=== PATIENT | female | born 1975 | race Two or more races ===

== ENCOUNTER 2024-11-05 05:23 | Inpatient (IN) | payer OTHER ==
[~2024-11-05] VITALS: Ht 167.6 cm; Wt 90.7 kg
--- NOTE | 2024-11-05 05:38 | ECG ---
[facility] Test Date: 2024-11-05 Test Time: 05:26:55 Pat Name: MIGUEL ANGEL DIAS Department: ED Room: 0240T Gender: F Director Of Religious Life: gisel : 1975 Requested By: MANUEL BYNUM Order Number: [id number] Reading MD: Pola Petersen Measurements Intervals Parrish Rate: 82 P: 58 DC: 134 QRS: -52 QRSD: 94 T: 51 QT: 374 QTc: 437 Interpretive Statements Sinus rhythm Left axis deviation Baseline wander in lead(s) II,III,aVR,aVL,aVF,V1,V3,V4,V5 Electronically Signed On 11-06-2024 17:44:50 PDT by Pola Petersen Please click the below link to view image of tracing.
--- NOTE | 2024-11-05 05:49 | ED.PDOC ---
History of Present Illness HPI Comments 48-year-old female who came to ER via EMS for shortness of breath. Has no medical problems. Has been experiencing intermittent episodes of left-sided chest pains, sharp, pinching, for the past 2 weeks. Two days ago patient started having congestion, cough, chest pains and shortness a breath. Also complaining of pain on her legs. No fever noted. Persistence of symptoms prompted patient to go to [facility]. Diagnostics were done and was found to have bilateral pulmonary emboli. Patient transferred here for further evaluation and management. 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 Family History Family History: Reviewed,noncontributory to illness Social History Smoker: Non-Smoker Alcohol: Denies ETOH Use Drugs: Denies Drug Use Lives In: Home Constitutional: reports: fatigue, weakness; denies: chills, diaphoresis, fever, malaise, sweats, others EENTM: reports: nose congestion; denies: blurred vision, double vision, ear bleeding, ear discharge, ear drainage, ear pain, ear ringing, eye pain, eye redness, hearing loss, mouth pain, mouth swelling, nasal discharge, nose blee ding, nose pain, photophobia, tearing, throat pain, throat swelling, voice changes, others Respiratory: reports: cough, SOB at rest, shortness of breath, SOB with excertion; denies: hemoptysis, orthopnea, stridor, wheezing, others Cardiovascular: reports: chest pain; denies: dizzy spells, diaphoresis, Dyspnea on exertion, edema, irregular heart beat, left arm pain, lightheadedness, palpitations, PND, syncope, others Gastrointestinal: denies: abdomen distended, abdominal pain, blood streaked bowels, constipated, diarrhea, dysphagia, difficulty swallowing, hematemesis, melena, nausea, poor appetite, poor fluid intake, rectal bleeding, rectal pain, vomiting, others Genitourinary: denies: abnormal vagina bleeding, burning, dyspareunia, dysuria, flank pain, frequency, hematuria, incontinence, pain, , vagina discharge , urgency, others Neurological: denies: dizziness, fainting, headache, left sided numbness, left sided weakness, numbness, paresthesia, pre-existing deficit, right sided numbness, right sided weakness, seizure, speech problems, tingling, tremors, weakness, others Musculoskeletal: denies: back pain, gout, joint pain, joint swelling, muscle pain, muscle stiffness, neck pain, others Integumetry: denies: bruises, change in color, change in hair/nails, dryness, laceration, lesions, lumps, rash, wounds, others Allergic/Immunocompromised: denies: Difficulty Healing, Frequent Infections, Hives, Itching, others Hematologic/Lymphatic: denies: anemia, blood clots, easy bleeding, easy bruising, swollen glands, others Endocrine: denies: excessive hunger, excessive sweating, excessive thirst, excessive urination, flushing, intolerance to cold, intolerance to heat, unexplained weight gain, unexplained weight loss, others Psychiatric: denies: anxiety, bipolar disorder, depression, hopeless, panic di sorder, schizophrenia, sleepless, suicidal, others Physical Exam General Appearance: No Apparent Distress, Normal HEENT: Normal ENT Inspection, Pharynx Normal, TMs Normal Neck: Full Range of Motion, Non-Tender, Normal, Normal Inspection Respiratory: Chest Non-Tender, Lungs Clear, No Accessory Muscle Use, No Respiratory Distress, Normal Breath Sounds Cardiovascular: No Edema, No JVD, No Murmur, No Gallop, Normal Peripheral Pulses, Regular Rate/Rhythm Breast Exam: Deferred Gastrointestinal: No Organomegaly, Non Tender, No Pulsatile Mass, Normal Bowel Sounds, Soft Genitalia: Deferred Pelvic: Deferred Rectal: Deferred Extremities: No calf tenderness, Normal capillary refill, Normal inspection, Normal range of motion, Non-tender, No pedal edema Musculoskeletal : Apperance: Normal Neurologic: Alert, oil spot washer II-XII nml as Tested, No Motor Deficits, Normal Affect, Normal Mood, No Sensory Deficits Cerebellar Function: Normal Reflexes: Normal Skin: Dry, Normal Color, Warm Lymphatic: No Adenopathy Was a procedure done? Was a procedure done?: No Differential Dx Considerations may include: Electrolyte imbalance, pneumonia, coronary artery disease, AL, pulmonary emboli, congestive heart failure X-Ray, Labs, Meds, VS Vital Signs Date Time Temp Pulse Resp B/P (MAP) Pulse Ox O2 Delivery O2 Flow Rate FiO2 11/05/24 05:26 82 11/05/24 05:25 98.4 99 16 144/82 (102) 98 98.4 Time of 1ST Reevaluation: 05:41 Reevaluation 1ST: Unchanged Patient Education/Counseling: Diagnosis, Treatment Family Education/Counseling: No Family Present Departure 1 Departure Time of Disposition: 05:51 (Patient was a transfer from [facility] for massive PE. Patient received a heparin bolus at outside facility we will admit patient for further workup and inari consultation) Impression: Primary Impression: Pulmonary embolism Qualified Codes: I26.02 - Saddle embolus of pulmonary artery with acute cor pulmonale Additional Impressions: Shortness of breath Acute chest pain Disposition: ADMITTED INPATIENT Admit to: [facility] Condition: Critical Critical Care Note Critical Care Time?: Yes (35 min-critical care time only) Critical care comment: Pulmonary emboli Authorized and Performed by: Manuel Rodriguez MD Total critical care time: Approximately 38 minutes Due to a high probability of clinically significant, life threatening deterioration, the patient required my highest level of preparedness to intervene emergently and I personally spent this critical care time directly and personally managing the patient. This critical care time included obtaining a history; examining the patient; pulse oximetry; ordering and review of studies; arranging urgent treatment with development of a management plan; evaluation of patient's response to treatment; frequent reassessment; and, discussions with other providers. This critical care time was performed to assess and manage the high probability of imminent, life-threatening deterioration that could result in multi-organ failure. It was exclusive of separately billable procedures and treating other patients and teaching time. Please see my other sections and the rest of the note for further information on patient assessment and treatment. Stability Stability form required: No Heart Score Heart Score: Heart Score Response (Comments) Value History Moderate Suspicious 1 EKG Normal 0 Age 45-64 1 Risk Factors No known risk factors 0 Troponin Normal limit 0 Total 2 I personally scribed for MANUEL RODRIGUEZ MD ([email or web address]) on 11/05/24 at 05:49. Electronically submitted by Valdez Mehta ([facility]). MANUEL RODRIGUEZ MD Nov 05, 2024 05:49
[2024-11-05 06:16] LABS: Basophils # (auto) 0 10 ^3/uL (0-0.2); Basophils % (auto) 0.8 % (0.0-2.0); Eosinophils # (auto) 0.3 10 ^3/uL (0-0.8); Eosinophils % (auto) 3.9 % (0.0-7.0); Hematocrit 41.2 % (36.0-46.0); Hemoglobin 14.1 g/dL (12.2-16.2); Lymphocytes # (auto) 1.3 10 ^3/uL (0.4-5.4); Lymphocytes % (auto) 20.8 % (10.0-50.0); Mean Corpuscular Hemoglobin 30.9 pg (28.0-32.0); Mean Corpuscular Hgb Conc. 34.1 g/dL (32.0-36.0); Mean Corpuscular Volume 90.6 fL (80.0-100.0); Monocytes # (auto) 0.8 10 ^3/uL (0-1.3); Monocytes % (auto) 12.1 % (0.0-12.0); Neutrophils % (auto) 62.4 % (37.0-80.0); Nucleated Red Blood Cells % 0.2 %; Platelet Count (auto) 307 10^3/uL (140-450); Red Blood Cells 4.55 10^6/uL (4.0-5.20); Red Cell Distribution Width 13.5 % (11.8-14.3); White Blood Cell 6.4 10^3/uL (4.4-10.8)
[2024-11-05 06:27] LABS: Sodium 139 mmol/L (136-145)
[2024-11-05 06:28] LABS: Anion Gap 8 (5-15); Calcium 8.7 mg/dL (8.7-10.4); Carbon Dioxide 23 mmol/L (20-31)
[2024-11-05 06:33] LABS: BUN/Creatinine Ratio 18.5 (10.0-20.0); Blood Urea Nitrogen 10 mg/dL (9-23)
[2024-11-05 06:34] LABS: Chloride 108 mmol/L (98-107); Glucose 109 mg/dL (74-106); Potassium 3.2 mmol/L (3.5-5.1)
[2024-11-05 06:44] LABS: INR 1.01 (0.9-1.15); Partial Thromboplastin Time 40.2 SEC (24.5-34.5); Prothrombin Time 10.7 sec (9.3-11.8)
[2024-11-05] MEDS ORDERED: NITROGLYCERIN 0.4 MG SL TAB SL PRN (06:45)
[2024-11-05] MEDS ORDERED: ONDANSETRON HCL 4 MG/2 ML VIAL IV PRN (06:45)
[2024-11-05] MEDS ORDERED: HEPARIN SODIUM (PORCINE) 5000 UNITS/ML 1ML VIAL IV ONE (06:45)
[2024-11-05] MEDS ORDERED: MORPHINE SULFATE INJ 2 MG/ml SYRG IV PRN (06:45)
[2024-11-05] MEDS ORDERED: MORPHINE SULFATE 4 MG/ML SYR/VIAL IV PRN (06:45)
[2024-11-05] MEDS: POTASSIUM CHL 20 Meq TABLET PO ONE (06:45)
--- NOTE | 2024-11-05 07:15 | DVHHP2 ---
History of Present Illness Reason for Visit: Chest Pain History of Present Illness Shoshana Grangre is a 48-year-old female with past medical history of hypertension, fibromyalgia, cholecystectomy, partial hysterectomy, and tubal ligation who presents to the ED from [facility] for shortness of breath and left chest pain x2 weeks. Patient reports that she was sick with a cough and cold with productive clear phlegm. Patient reports that the chest pain is pinching and sharp currently 3/10 and intermittent pain. She states that coughing and the cold air makes it worse. She also reports that she had a headache with the cough. Patient reports that she does not take any medications at home. Per reports [facility] CT chest shows massive left and moderate right PE associated with right ventricular strain. Inferior lingula and left basilar wedge shaped pulmonary opacities concerning for infarction. CT abdomen pelvis from [place] shows bilateral subcentimeter nonobstructive calcified renal calculi, the largest is seen in the left lower renal pole measuring 6 mm. Patient does not endorse any leg pain however she states that her thigh left side does have some pinching sensation when she coughs. Patient denies fever, chills, lightheadedness, weakness, dizziness, abdominal pain, nausea, vomiting, and diarrhea. Patient was given a bolus of 5000 units of heparin at [facility]. Cardiovascular: HTN Past Medical History Fibromyalgia Past Surgical History: Cholecystectomy, Hysterectomy, Tubal Ligation Family History: Cancer, Other (Dad's entire family from cancer or with cancer) Smoke: No ALCOHOL: occassional Drugs: None Lives: with Family Domestic Violence: Neg Review of Systems Respiratory: Cough, Shortness of breath, Sputum Cardiovascular: Chest Pain Musculoskeletal: leg pain Allergies: Coded Allergies: NO KNOWN ALLERGIES (Unverified , 11/05/24) Exam Vital Signs Vital Signs Date Time Temp Pulse Resp B/P (MAP) Pulse Ox O2 Delivery O2 Flow Rate FiO2 11/05/24 05:45 98.1 73 18 135/82 (99) 98 98.1 General Appearance: Alert, Oriented X3, Cooperative, No acute distress HEENT: Atraumatic, PERRLA, EOMI, Mucous membr. moist/pink Respiratory: Normal air movement Cardiovascular: Regular rate, Normal S1, Normal S2 Abdominal: Normal bowel sounds, Soft, No tenderness, No hepatospenomegaly, No masses Extremities: No cyanosis Skin: No significant lesion Neuro: Normal speech, Strength at 5/5 X4 ext, Normal tone, Sensation intact Psych/Mental Status: Mental status NL, Mood NL Labs/Xrays Labs Test 11/05/24 06:00 Range/Units White Blood Count 6.4 4.4-10.8 10^3/uL Red Blood Count 4.55 4.0-5.20 10^6/uL Hemoglobin 14.1 12.2-16.2 g/dL Hematocrit 41.2 36.0-46.0 % Mean Corpuscular Volume 90.6 80.0-100.0 fL Mean Corpuscular Hemoglobin 30.9 28.0-32.0 pg Mean Corpuscular Hemoglobin Concent 34.1 32.0-36.0 g/dL Red Cell Distribution Width 13.5 11.8-14.3 % Platelet Count 307 140-450 10^3/uL Mean Platelet Volume 6.6 L 6.9-10.8 fL Neutrophils (%) (Auto) 62.4 37.0-80.0 % Lymphocytes (%) (Auto) 20.8 10.0-50.0 % Monocytes (%) (Auto) 12.1 H 0.0-12.0 % Eosinophils (%) (Auto) 3.9 0.0-7.0 % Basophils (%) (Auto) 0.8 0.0-2.0 % Neutrophils # (Auto) 4.0 1.6-8.6 10 ^3/uL Lymphocytes # (Auto) 1.3 0.4-5.4 10 ^3/uL Monocytes # (Auto) 0.8 0-1.3 10 ^3/uL Eosinophils # (Auto) 0.3 0-0.8 10 ^3/uL Basophils # (Auto) 0 0-0.2 10 ^3/uL Nucleated Red Blood Cells 0.2 % Prothrombin Time 10.7 9.3-11.8 sec Prothrombin Time INR 1.01 0.9-1.15 Activated Partial Thromboplast Time 40.2 H 24.5-34.5 SEC D-Dimer, Quantitative 0.48 0.0-0.49 mg/L FEU Sodium Level 139 136-145 mmol/L Potassium Level 3.2 L 3.5-5.1 mmol/L Chloride Level 108 H 98-107 mmol/L Carbon Dioxide Level 23 20-31 mmol/L Anion Gap 8 5-15 Blood Urea Nitrogen 10 9-23 mg/dL Creatinine 0.54 L 0.550-1.02 mg/dL Glomerular Filtration Rate Calc 113 >90 mL/min BUN/Creatinine Ratio 18.5 10.0-20.0 Serum Glucose 109 H 74-106 mg/dL Lactic Acid Level 0.9 0.4-2.0 mmol/L Calcium Level 8.7 8.7-10.4 mg/dL Troponin I High Sensitivity < 3 L </=34 ng/L B-Type Natriuretic Peptide 12.56 0-100 pg/mL Assessment/Plan Assessment/Plan Assessment Hypokalemia Dyspnea Chest pain Pulmonary emboli ETOH use Obesity History of hypertension History of fibromyalgia History of cholecystectomy History of hysterectomy History of tubal ligation Plan Admit to [facility] Heparin drip Replete lytes NPO for now probable thrombectomy Ultrasound bilateral lower extremity venous Lactic EKG Radiology consulted by ED Troponin negative x1 BNP D-dimer PT PTT Aspirin Statin Lipid panel UDS A1c TSH Echo ordered Cardiac consult No home meds to reconcile per patient does not take anything Plan of care with patient, patient's spouse, patient's son-in-law and nurse Counseled patient on cessation of EtOH use Counseled patient on lifestyle modifications, diet, and exercise See reports from [facility] for imaging studies that were done Plan discussed with: Patient, Spouse My Orders Orders - JD PEMBERTON Procedure Category Date Status Time Potassium Er Tablet PHA 11/05/24 Verified (Klor-Con Tablet) 06:45 Admit ADMIT 11/05/24 Verified 06:43 Code Status CODE 11/05/24 Verified 06:43 Vital Signs BI 11/05/24 Verified 06:43 Dynamicist BI 11/05/24 Verified 06:43 Aspirin Tablet PHA 11/05/24 Verified 10:00 Date of Service: Nov 05, 2024 Billing Provider: JD PEMBERTON Common Visit Codes: [id number] INP/OBS CARE (HIGH) JD PEMBERTON Nov 05, 2024 07:15
[2024-11-05] MEDS: cefTRIAXone 1GM/50ML D5W 50 ML IV ONE (07:30)
[2024-11-05 08:15] VITALS: PULSE 65; RESP 12; O2SAT 95
--- NOTE | 2024-11-05 08:25 | DVH ---
Bilateral lower extremity venous duplex Clinical History: bilateral PE Comparison: None Technique: Duplex Doppler evaluation of the deep venous systems of both lower extremities from the common femora l veins to the popliteal veins including color Doppler and spectral/pulsed waveform analysis was perf ormed. Findings: RIGHT SIDE: The common femoral vein demonstrates appropriate compressibility and waveform variability. There is compressibility/patency of the great saphenous vein at the proximal thigh. The femoral vein demonstrates appropriate compressibility and waveform variability. The deep femoral vein demonstrates appropriate compressibility and waveform variability. The popliteal vein demonstrates appropriate compressibility and waveform variability. There is normal compressibility at the tibioperoneal trunk. LEFT SIDE: The common femoral vein demonstrates appropriate compressibility and waveform variability. There is compressibility/patency of the great saphenous vein at the proximal thigh. The femoral vein demonstrates appropriate compressibility and waveform variability. The deep femoral vein demonstrates appropriate compressibility and waveform variability. The popliteal vein demonstrates appropriate compressibility and waveform variability. There is normal compressibility at the tibioperoneal trunk. Impression: No right or left femoropopliteal venous thrombosis.
[2024-11-05] MEDS: HEPARIN DRIP/D5W 100UNITS/ML 250 ML IV SCH (08:29)
[2024-11-05 08:36] LABS: Triglycerides 92 mg/dL (< 150)
[2024-11-05 08:37] LABS: LDL Cholesterol 73 mg/dL (< 100)
[2024-11-05 08:38] LABS: Cholesterol 128 mg/dL (< 200); HDL Cholesterol 49 mg/dL (40-59)
[2024-11-05] MEDS: IOHEXOL 350 MG/ML 100ML IJ ONE (09:55)
[2024-11-05] MEDS: ASPirin 81 mg TAB PO SCH (10:00)
[2024-11-05] MEDS: SODIUM CHLORIDE 0.9% 1,000 ML IV SCH (10:30)
--- NOTE | 2024-11-05 10:46 | DVH ---
CTA Chest with intravenous contrast INDICATION: R/O PE COMPARISON: None TECHNIQUE: Multidetector spiral CTA of the chest was performed of the chest with intravenous contrast . PULMONARY ANGIOGRAPHY PROTOCOL was utilized using a bolus-tracking technique centered on the main p ulmonary artery. Axial, coronal and sagittal multiplanar and MIP reformats were performed. CONTRAST: Type of contrast: Omni 350 Contrast injected: 60 ml Radiation dose : Chest: CTDI volume is 23.71 mGy. Dose-length product is 945.8 mGy*cm The dose indicators for CT are the volume computed Tomography (CT) dose Index (CTDIvol) and the dose Length product (DLP), and are measured in units of mGy and mGy-cm, respectively. These indicators are not patient dose, but values generated from the CT scanner acquisition factors. The report includes radiation exposure data for exposures received during this examination. Findings: Pulmonary artery: No pulmonary embolism Lower neck: Normal thyroid. Lungs: No focal consolidation, pleural effusion or pneumothorax. Heart/Vascular Structures: Normal heart size. No pericardial effusion. Lymph Nodes: No adenopathy Pleura: No pleural effusion or significant pneumothorax. Musculoskeletal: No acute osseous abnormality. Soft tissues: Normal. Upper abdomen: Limited portions of the upper abdomen are unremarkable. IMPRESSION: 1. No pulmonary embolism. 2. No acute thoracic finding. HS:Y
[2024-11-05] MEDS: ACETYLCYSTEINE ORAL for CIN 20%(200MG/ML) 4ML PO ONE (11:39)
--- NOTE | 2024-11-05 11:41 | DVH ---
EXAM: XY CHEST XRAY 1 VIEW Indication: cp Technique: Single frontal view of the chest was obtained Comparison: None FINDINGS: Lines and Tubes: None Lungs: No focal consolidation. Pleura: No effusion. No pneumothorax. Cardiomediastinal contours: Unremarkable Bones: No acute osseous abnormality. IMPRESSION: No acute cardiopulmonary disease.
--- NOTE | 2024-11-05 12:52 | DVHPN2 ---
Reviewed: Care Plan, H&P, Labs, Medications, Previous Orders, Radiology Changes from previous H/P or p: No Changes Cardiovascular: Chest Pain Respiratory: Cough, Shortness of breath, Sputum Musculoskeletal: leg pain Objective Vitals Vital Signs Date Time Temp Pulse Resp B/P (MAP) Pulse Ox O2 Delivery O2 Flow Rate FiO2 11/05/24 08:15 65 12 95 Room Air* 0 21 11/05/24 08:00 98.5 130/78 (95) 98.5 Medications Current Medications Medications Dose Ordered Sig/Alex Route Start Time Stop Time Status Last Admin Dose Admin Aspirin 81 mg DAILY PO 11/05/24 10:00 Atorvastatin Calcium 40 mg HS PO 11/05/24 22:00 Morphine Sulfate 2 mg Q30MP PRN IV 11/05/24 06:45 Acetaminophen 650 mg Q6HP PRN PO 11/05/24 06:45 Ondansetron HCl 4 mg Q4HP PRN IV 11/05/24 06:45 Nitroglycerin 0.4 mg Q5MINP PRN SL 11/05/24 06:45 Ceftriaxone Sodium 50 ml @ 100 mls/hr DAILY@09 IV 11/06/24 09:00 Sodium Chloride 1,000 ml @ 75 mls/hr [id number] IV 11/05/24 08:30 11/05/24 10:30 75 MLS/HR Acetylcysteine 1,200 mg BID PO 11/05/24 22:00 11/07/24 21:59 Laboratory Results Laboratory Tests 11/05/24 06:00 Chemistry Test 11/05/24 06:00 Calcium Level 8.7 mg/dL (8.7-10.4) Coagulation Test 11/05/24 06:00 Prothrombin Time 10.7 sec (9.3-11.8) Prothrombin Time INR 1.01 (0.9-1.15) Activated Partial Thromboplast Time 40.2 SEC (24.5-34.5) H D-Dimer, Quantitative 0.48 mg/L FEU (0.0-0.49) Lipid panel Test 11/05/24 06:00 Cholesterol Level 128 mg/dL (< 200) HDL Cholesterol 49 mg/dL (40-59) Triglycerides Level 92 mg/dL (< 150) Cardiac Markers Test 11/05/24 06:00 B-Type Natriuretic Peptide 12.56 pg/mL (0-100) HgA1c, TSH Test 11/05/24 06:00 Hemoglobin A1c 5.4 % A1C (<5.7) Thyroid Stimulating Hormone (TSH) 0.39 uIU/mL (0.55-4.78) L Labs and/or images reviewed: Labs reviewed by me, Image(s) reviewed by me Assessment/Plan Assessment/Plan Acute chest pain troponin negative x3: Cardiology consult for Dr. Petersen D-dimer normal DVT ruled out PE ruled out Possible community-acquired pneumonia: Rocephin Hypertension Fibromyalgia Moderate obesity Chronic alcohol abuse : will check blood alcohol level and urine drug screen Britney test pending Rapid flu test pending Plan discussed with: Patient My Orders Orders - VIOLETA DUNN MD Procedure Category Date Status Time Rapid Influenza A&B LAB 11/05/24 Logged 12:47 Communication Order ORDERS 11/05/24 Transmitted 12:47 * Cardiology Consult CONS 11/05/24 Transmitted 12:49 Date of Service: Nov 05, 2024 Billing Provider: VIOLETA DUNN MD Common Visit Codes: [id number] INP/OBS CARE(HIGH) VIOLETA DUNN MD Nov 05, 2024 12:52
--- NOTE | 2024-11-05 13:58 | DVH ---
CT CT AB PEL WO CON-NO ORAL OR IV INDICATION: R/O KIDNEY STONES EXAM DATE: 11/05/2024 01:11 PM COMPARISON: None RADIATION DOSE: CTDIvol: 16.93 mGy, DLP: 954.35 mGy*cm PROCEDURE: Helical CT images were obtained of the abdomen and pelvis without IV contrast Sagittal and coronal reconstructions are provided. ORAL CONTRAST: None. ADDITIONAL IMAGES / REFORMATS: None All C T scans at this medical facility are performed using dose modulation techniques as appropriate to a p erformed exam including the following: Automated exposure control was utilized; adjustment of the MA and/or KV according to patient size; and use of iterative reconstruction technique. FINDINGS: LUNG BASE: 4 mm left lower lobe calcified pulmonary granuloma. LIVER: Normal. GALLBLADDER AND BILIARY TREE: Cholecystectomy clips are seen. No intra- or extrahepatic biliary ducta l dilation. PANCREAS: Normal. SPLEEN: Normal. BOWEL: Mild colonic diverticulosis. Normal appendix. ADRENALS: Normal. KIDNEYS AND URETER: Contrast material seen to opacify the renal collecting systems. BLADDER: Decompressed with contrast material inside. REPRODUCTIVE ORGANS: Absent. LYMPH NODES:No lymphadenopathy. PERITONEUM: No ascites or free air. No other fluid collection. VESSELS: Scattered atherosclerotic calcifications are noted. RETROPERITONEUM: Normal. ABDOMINAL WALL: Normal. BONES: Scattered osseous degenerative changes are noted. IMPRESSION: No acute intraabdominal abnormality. No kidney stones are seen.
[2024-11-05] MEDS: ACETAMINOPHEN 325 MG TAB PO PRN (14:51)
--- NOTE | 2024-11-05 16:08 | DVHINCON2 ---
Date Seen: Nov 05, 2024 Referring Physician MD Beto Reason for Consultation Chest pain History of Present Illness This is a 48-year-old female patient who presents to the emergency room as a transfer from [facility]. Initially, the patient went to [facility] with complaints of chest pain for two weeks as well as shortness of breath. While at [facility], it was noted in their reports that the patient had a pulmonary embolism with right ventricular strain. After the patient was brought to this facility, a repeat CT with contrast was done and shows no pulmonary embolism. Cardiology is being consulted for chest pain. The patient reports that the chest pain began initially two weeks ago. She describes as provoked by coughing, intermittent,"pinching" in nature, and located on the left side of the chest without radiation. Initial twelve lead electrocardiogram reveals normal sinus rhythm without any significant ST segment changes. Serial troponin levels have been negative. The patient denies any previous past medical history and states that she does not take any prescribed medications. She does report recently having flu-like symptoms for few days prior to emergency room arrival including sore throat and cough. Past Medical History Denies all previous medical history Past Surgical History Cholecystectomy Tubal ligation Partial hysterectomy Family History Family history reviewed. Social History Denies the use of tobacco, alcohol or illicit drugs. Allergies: Coded Allergies: NO KNOWN ALLERGIES (Unverified , 11/05/24) Home Meds Denies taking any prescribed medications Current Medications Current Medications Medications (Trade) Dose Ordered Sig/Alex Route PRN Reason Start Time Stop Time Status Last Admin Aspirin 81 mg DAILY PO 11/05/24 10:00 Atorvastatin Calcium (Lipitor) 40 mg HS PO 11/05/24 22:00 Morphine Sulfate 2 mg Q30MP PRN IV FOR CHEST PAIN 11/05/24 06:45 Acetaminophen (Tylenol Tablet) 650 mg Q6HP PRN PO MILD PAIN (1-3 PAIN SCALE) 11/05/24 06:45 11/05/24 14:51 Ondansetron HCl (Zofran) 4 mg Q4HP PRN IV NAUSEA / VOMITING 11/05/24 06:45 Nitroglycerin (Ntrostat Sublingual) 0.4 mg Q5MINP PRN SL FOR CHEST PAIN 11/05/24 06:45 Morphine Sulfate 2 mg Q30M PRN IV FOR CHEST PAIN 11/05/24 06:45 11/05/24 08:03 DC Heparin Sodium/ Dextrose 250 ml @ 17 mls/hr [id number] IV 11/05/24 06:45 11/05/24 11:05 DC 11/05/24 08:29 Ceftriaxone Sodium 50 ml @ 100 mls/hr DAILY@09 IV 11/06/24 09:00 Sodium Chloride 1,000 ml @ 75 mls/hr [id number] IV 11/05/24 08:30 11/05/24 10:30 Acetylcysteine (Mucomyst Po Soln (For [place])) 1,200 mg BID PO 11/05/24 22:00 11/07/24 21:59 Review of Systems Constitutional: No symptom reported Ears, Nose, & Throat: No symptom reported Eyes: No symptom reported Neurological: No symptoms reported Pulmonary/Respiratory: No symptoms reported Cardiovascular: Chest pain Gastrointestinal: No symptom reported Genitourinary: No symptom reported Musculoskeletal: No symptom reported Skin: No symptom reported Psychiatric: No symptom reported Endocrine: No symptom reported Hematologic/Lymphatic: No symptom reported Vital Signs Vital Signs Date Time Temp Pulse Resp B/P (MAP) Pulse Ox O2 Delivery O2 Flow Rate FiO2 11/05/24 12:00 75 15 142/85 (104) 97 11/05/24 08:15 Room Air* 0 21 11/05/24 08:00 98.5 98.5 Physical Exam General Appearance: Cooperative. Well-developed. Well-nourished. No acute distress. Pulmonary/Respiratory: Clear, bilateral breaths sounds. Cardiovascular/Chest: Regular rate and rhythm. Peripheral Pulses: 2+ Radial (R). 2+ Radial (L). 2+ Pedal (R). 2+ Pedal (L) Abdominal Exam: Normal bowel sounds. Ankle Exam: Negative ankle edema Lower extremities: Negative lower extremity edema Neuro/Mental Status: A/OX4, coherent. Thoughts/Psych: Normal thought pattern. Appropriate mood and affect. Good judgment and insight. Appearance: No acute distress. Skin Exam: Normal inspection. Normal color. Warm and dry. Labs/Diagnostic Data Labs Test 11/05/24 08:59 11/05/24 06:00 Range/Units Troponin I High Sensitivity < 3 L </=34 ng/L White Blood Count 6.4 4.4-10.8 10^3/uL Red Blood Count 4.55 4.0-5.20 10^6/uL Hemoglobin 14.1 12.2-16.2 g/dL Hematocrit 41.2 36.0-46.0 % Mean Corpuscular Volume 90.6 80.0-100.0 fL Mean Corpuscular Hemoglobin 30.9 28.0-32.0 pg Mean Corpuscular Hemoglobin Concent 34.1 32.0-36.0 g/dL Red Cell Distribution Width 13.5 11.8-14.3 % Platelet Count 307 140-450 10^3/uL Mean Platelet Volume 6.6 L 6.9-10.8 fL Neutrophils (%) (Auto) 62.4 37.0-80.0 % Lymphocytes (%) (Auto) 20.8 10.0-50.0 % Monocytes (%) (Auto) 12.1 H 0.0-12.0 % Eosinophils (%) (Auto) 3.9 0.0-7.0 % Basophils (%) (Auto) 0.8 0.0-2.0 % Neutrophils # (Auto) 4.0 1.6-8.6 10 ^3/uL Lymphocytes # (Auto) 1.3 0.4-5.4 10 ^3/uL Monocytes # (Auto) 0.8 0-1.3 10 ^3/uL Eosinophils # (Auto) 0.3 0-0.8 10 ^3/uL Basophils # (Auto) 0 0-0.2 10 ^3/uL Nucleated Red Blood Cells 0.2 % Prothrombin Time 10.7 9.3-11.8 sec Prothrombin Time INR 1.01 0.9-1.15 Activated Partial Thromboplast Time 40.2 H 24.5-34.5 SEC D-Dimer, Quantitative 0.48 0.0-0.49 mg/L FEU Sodium Level 139 136-145 mmol/L Potassium Level 3.2 L 3.5-5.1 mmol/L Chloride Level 108 H 98-107 mmol/L Carbon Dioxide Level 23 20-31 mmol/L Anion Gap 8 5-15 Blood Urea Nitrogen 10 9-23 mg/dL Creatinine 0.54 L 0.550-1.02 mg/dL Glomerular Filtration Rate Calc 113 >90 mL/min BUN/Creatinine Ratio 18.5 10.0-20.0 Serum Glucose 109 H 74-106 mg/dL Hemoglobin A1c 5.4 <5.7 % A1C Lactic Acid Level 0.9 0.4-2.0 mmol/L Calcium Level 8.7 8.7-10.4 mg/dL B-Type Natriuretic Peptide 12.56 0-100 pg/mL Triglycerides Level 92 < 150 mg/dL Cholesterol Level 128 < 200 mg/dL LDL Cholesterol 73 < 100 mg/dL HDL Cholesterol 49 40-59 mg/dL Thyroid Stimulating Hormone (TSH) 0.39 L 0.55-4.78 uIU/mL Plasma/Serum Blood Alcohol < 3.0 <10 mg/dL Assessment Chest pain, likely noncardiac Rule out structural heart disease Hypertension Hypokalemia ?Thyroid disease Plan/Recommendation We will continue with the following plan/recommendations (Dr. Petersen): Case discussed with . We will proceed with obtaining a transthoracic echocardiogram to evaluate cardiac function. Given the patient's clinical presentation, negative troponin level, and unremarkable twelve lead electrocardiogram, doubt ACS. In the setting of an unremarkable transthoracic echocardiogram, there is no further inpatient cardiac workup indicated at this time. The patient may proceed with an outpatient stress test if deemed necessary. Thank you for allowing us to care for this patient. Please call with any questions or concerns. Critical care time spent: 44 minutes This medical document was created using an electronic medical record system with voice recognition software and computerized dictation system. Although this document has been carefully reviewed, there might still be some phonetic and typographical errors. Occasional wrong-word or ``sound-alike substitutions may have occurred due to the inherent limitations of voice recognition software. These areas are purely typographical due to imperfections of the software programs and do not reflect any compromise in the patient's medical care. Please read the chart carefully and recognize, using context, where these substitutions have occurred. Plan discussed with: Patient NYHA Physical activity limitations: NA Date of Service: Nov 05, 2024 Billing Provider: EMILE CHIRINOS Cardiology Common Codes: [id number] INP/OBS CARE (High) Cardiology Consultation Codes: [id number] CONSULT <45MIN EMILE CHIRINOS Nov 05, 2024 16:08
[2024-11-05 17:00] VITALS: BP 128/86; PULSE 83; RESP 18; TEMP 98.3; O2SAT 96
[2024-11-05 17:51] VITALS: BP 120/72; PULSE 72; RESP 17; TEMP 97.8; O2SAT 97
[2024-11-05 18:02] LABS: COVID19 ANTIGEN SOFIA FIA NEGATIVE (NEGATIVE); Rapid Influenza A Negative (Negative); Rapid Influenza B Negative (Negative)
[2024-11-05 19:18] LABS: Free T3 3.33 pg/mL (2.3-4.2)
--- NOTE | 2024-11-05 19:18 | DVHSR ---
APPROVED REPORT EXAM: Two-dimensional and M-mode echocardiogram with Doppler and color Doppler. Blood Pressure: 135/82 mmHg INDICATION Chest Pain RISK FACTORS Height: 66, Weight: 209 DIMENSIONS LVDd4.8 (3.8-5.7cm)LA (2D)3.9 (1.9-4.0cm)Aortic Root3.3 (2.0-3.7cm) LVDs3.3 (2.5-4.0cm)LA (MM) (1.9-4.0cm)Aortic Cusp Exc1.7 (1.5-2.0cm) EF (%) 60.0 (55-70%)Rt. Atrium3.9 (1.9-4.0cm)Asc. Aorta cm IVSd1.1 (0.7-1.1cm)RV (D) (1.8-2.4cm) PWd1.0 (0.7-1.1cm) Mitral Valve MitralMitral Stenosis E wave0.69m/sMV Mean GR.mmHg A wave0.59m/sMV Peak GR.mmHg E/A ratio1.22D MVAcm2 DECEL [id number] 1/2 [id number] IVRTmsDop MVA2.82cm2 Aortic Valve Aortic ValveAortic Stenosis V11.09m/Josie Mean GR.4mmHg V21.38m/Josie Peak GR.8mmHg LVOT Diameter1.9 (1.8-2.4cm)Doppler AVA2.24cm2 Pulmonic Valve V21.00m/s Tricuspid Valve TR Velocity2.54m/s [id number] Conclusion Technically good study. Sinus rhythm. Normal chamber sizes. Normal valves. EF of 60% with normal RV function. Mild TR. No evidence for pulmonary hypertension. No pericardial effusion masses or vegetations.
[2024-11-05 20:00] VITALS: PULSE 82; PULSE 84; RESP 18; O2SAT 95
[2024-11-05 21:00] VITALS: BP 135/77; PULSE 82; RESP 18; TEMP 98.6; O2SAT 94
[2024-11-05] MEDS: HYDROcodone-ACET 5/325MG TAB PO PRN (21:04)
[2024-11-05 22:02] LABS: Urine Bacteria FEW /hpf (None Seen); Urine Blood 2+ /uL (Negative); Urine Budding Yeast OCCASIONAL /hpf (None Seen); Urine Clarity Clear (Clear); Urine Color Yellow (Yellow); Urine Hyaline Cast FEW /lpf (0 - 2); Urine Mucus FEW (None Seen); Urine Protein, UAD TRACE (Negative); Urine Specific Gravity 1.028 (1.001-1.035); Urine Squamous Epithelial Cell FEW /hpf (<5); Urine Urobilinogen 2 mg/dL (Negative); Urine WBC 1 /HPF (0-5)
[2024-11-05 22:11] LABS: Amphetamine Screen, Urine Neg (NEGATIVE); Barbiturate Scree,Urine Neg (NEGATIVE); Benzodiazephine Screen, Urine Neg (NEGATIVE); Cannabinoid Screen, Urine Neg (NEGATIVE); Cocaine Screen, Urine Neg (NEGATIVE); Opiate Scree,Urine Neg (NEGATIVE); Phencyclidine Screen, Urine Neg (NEGATIVE)
[2024-11-05] MEDS: ACETYLCYSTEINE ORAL for CIN 20%(200MG/ML) 4ML PO SCH (22:18)
[2024-11-05] MEDS: ATORVASTATIN 20 MG TAB PO SCH (22:18)
[2024-11-06] VITALS (7 sets, daily range): BP systolic 107–137; BP diastolic 65–76; PULSE 63–80; RESP 17–20; TEMP 97.8–98.4; O2SAT 93–98
[2024-11-06 06:51] LABS: Basophils # (auto) 0 10 ^3/uL (0-0.2); Basophils % (auto) 0.9 % (0.0-2.0); Eosinophils # (auto) 0.3 10 ^3/uL (0-0.8); Eosinophils % (auto) 5.7 % (0.0-7.0); Hematocrit 38.1 % (36.0-46.0); Hemoglobin 13.6 g/dL (12.2-16.2); Lymphocytes # (auto) 1.6 10 ^3/uL (0.4-5.4); Lymphocytes % (auto) 36.8 % (10.0-50.0); Mean Corpuscular Hemoglobin 32.2 pg (28.0-32.0); Mean Corpuscular Hgb Conc. 35.6 g/dL (32.0-36.0); Mean Corpuscular Volume 90.4 fL (80.0-100.0); Monocytes # (auto) 0.7 10 ^3/uL (0-1.3); Monocytes % (auto) 15.3 % (0.0-12.0); Neutrophils # (auto) 1.8 10 ^3/uL (1.6-8.6); Neutrophils % (auto) 41.3 % (37.0-80.0); Platelet Count (auto) 271 10^3/uL (140-450); Red Blood Cells 4.22 10^6/uL (4.0-5.20); Red Cell Distribution Width 13.4 % (11.8-14.3); White Blood Cell 4.4 10^3/uL (4.4-10.8)
[2024-11-06 07:00] LABS: Anion Gap 9 (5-15); Carbon Dioxide 24 mmol/L (20-31); Sodium 141 mmol/L (136-145)
[2024-11-06 07:06] LABS: BUN/Creatinine Ratio 11.1 (10.0-20.0)
[2024-11-06 07:08] LABS: Blood Urea Nitrogen 6 mg/dL (9-23); Calcium 8.4 mg/dL (8.7-10.4); Chloride 108 mmol/L (98-107); Glucose 128 mg/dL (74-106); Potassium 3.2 mmol/L (3.5-5.1)
[2024-11-06] MEDS ORDERED: TRAM-626 PO (09:45)
[2024-11-06] MEDS ORDERED: LEVO500T91 PO (09:45)
--- NOTE | 2024-11-06 09:48 | DVHPN2 ---
Reviewed: Care Plan, H&P, Labs, Medications, Previous Orders, Radiology Changes from previous H/P or p: No Changes Cardiovascular: Chest Pain Respiratory: Cough, Shortness of breath, Sputum Musculoskeletal: leg pain Objective Vitals Vital Signs Date Time Temp Pulse Resp B/P (MAP) Pulse Ox O2 Delivery O2 Flow Rate FiO2 11/06/24 05:00 98.4 78 19 122/68 (86) 96 98.4 11/05/24 20:00 Room Air* 0 21 Intake/Output Intake and Output 11/06/24 07:00 Intake Total 2115 ml Balance 2115 ml Intake Oral 940 ml IV Total 1175 ml # Voids 4 # Bowel Movements 1 Medications Current Medications Medications Dose Ordered Sig/Alex Route Start Time Stop Time Status Last Admin Dose Admin Aspirin 81 mg DAILY PO 11/05/24 10:00 Atorvastatin Calcium 40 mg HS PO 11/05/24 22:00 11/05/24 22:18 40 MG Morphine Sulfate 2 mg Q30MP PRN IV 11/05/24 06:45 Acetaminophen 650 mg Q6HP PRN PO 11/05/24 06:45 11/05/24 14:51 650 MG Ondansetron HCl 4 mg Q4HP PRN IV 11/05/24 06:45 Nitroglycerin 0.4 mg Q5MINP PRN SL 11/05/24 06:45 Ceftriaxone Sodium 50 ml @ 100 mls/hr DAILY@09 IV 11/06/24 09:00 Sodium Chloride 1,000 ml @ 75 mls/hr [id number] IV 11/05/24 08:30 11/06/24 04:20 75 MLS/HR Acetylcysteine 1,200 mg BID PO 11/05/24 22:00 11/07/24 21:59 11/05/24 22:18 1,200 MG Acetaminophen/ Hydrocodone Bitart 1 tab Q6HPRN PRN PO 11/05/24 20:30 11/06/24 05:10 1 TAB Laboratory Results Laboratory Tests 11/06/24 05:47 Chemistry Test 11/06/24 05:47 Calcium Level 8.4 mg/dL (8.7-10.4) L Magnesium Level 2.0 mg/dL (1.6-2.6) Urinalysis Test 11/05/24 21:33 Urine Color Yellow (Yellow) Urine Clarity Clear (Clear) Urine pH 6.0 (5.0-9.0) Urine Specific [place] 1.028 (1.001-1.035) Urine Protein Trace (Negative) H Urine Ketones Negative (Negative) Urine Blood 2+ /uL (Negative) H Urine Nitrite Negative (Negative) Urine Bilirubin Negative (Negative) Urine Urobilinogen 2 mg/dL (Negative) H Urine Leukocyte Esterase Negative /uL (Negative) Urine RBC 2 /hpf (0 - 4) Urine Microscopic WBC 1 /HPF (0-5) Urine Squamous Epithelial Cells Few /hpf (<5) Urine Bacteria Few /hpf (None Seen) H Urine Hyaline Casts Few /lpf (0 - 2) Urine Mucus Few (None Seen) Urine Yeast (Budding) Occasional /hpf (None Urine Glucose 2+ mg/dL (Normal) H Labs and/or images reviewed: Labs reviewed by me, Image(s) reviewed by me Assessment/Plan Assessment/Plan Transfered From [facility] Acute chest pain troponin negative x3: Cardiology consult for Dr. Petersen appreciated felt to be noncardiac chest pain, echocardiogram 60 percent ejection fraction, no further cardiac workup per Cardiology D-dimer normal DVT ruled out PE ruled out Possible community-acquired pneumonia: Rocephin Hypertension Fibromyalgia Moderate obesity Urine drug screen neg Britney test negative Rapid flu test negative Patient is asymptomatic without any chest pain stable vital signs being discharged home and she agrees. Plan discussed with: Patient My Orders Orders - VIOLETA DUNN MD Procedure Category Date Status Time Communication Order ORDERS 11/05/24 Transmitted 12:47 * Cardiology Consult CONS 11/05/24 Transmitted 12:49 Ct Ab Pel Wo Con-No CT 11/05/24 Resulted Oral Or Iv 13:11 Date of Service: Nov 06, 2024 Billing Provider: VIOLETA DUNN MD Common Visit Codes: [id number] INP/OBS CARE(HIGH) VIOLETA DUNN MD Nov 06, 2024 09:48
[2024-11-06] MEDS: cefTRIAXone 1GM/50ML D5W 50 ML IV SCH (09:49)
--- NOTE | 2024-11-06 09:52 | DVHDS2 ---
Discharge Summary Date of Admission Nov 05, 2024 at 06:43 Date of Discharge: Nov 06, 2024 Admitting Diagnosis Chest pain Wounds: None Labs/Diagnostic Data: Laboratory Results Test 11/06/24 05:47 11/05/24 21:33 11/05/24 18:35 11/05/24 16:56 White Blood Count 4.4 10^3/uL (4.4-10.8) Red Blood Count 4.22 10^6/uL (4.0-5.20) Hemoglobin 13.6 g/dL (12.2-16.2) Hematocrit 38.1 % (36.0-46.0) Mean Corpuscular Volume 90.4 fL (80.0-100.0) Mean Corpuscular Hemoglobin 32.2 pg (28.0-32.0) Mean Corpuscular Hemoglobin Concent 35.6 g/dL (32.0-36.0) Red Cell Distribution Width 13.4 % (11.8-14.3) Platelet Count 271 10^3/uL (140-450) Mean Platelet Volume 6.8 fL (6.9-10.8) Neutrophils (%) (Auto) 41.3 % (37.0-80.0) Lymphocytes (%) (Auto) 36.8 % (10.0-50.0) Monocytes (%) (Auto) 15.3 % (0.0-12.0) Eosinophils (%) (Auto) 5.7 % (0.0-7.0) Basophils (%) (Auto) 0.9 % (0.0-2.0) Neutrophils # (Auto) 1.8 10 ^3/uL (1.6-8.6) Lymphocytes # (Auto) 1.6 10 ^3/uL (0.4-5.4) Monocytes # (Auto) 0.7 10 ^3/uL (0-1.3) Eosinophils # (Auto) 0.3 10 ^3/uL (0-0.8) Basophils # (Auto) 0 10 ^3/uL (0-0.2) Nucleated Red Blood Cells 0.0 % Sodium Level 141 mmol/L (136-145) Potassium Level 3.2 mmol/L (3.5-5.1) Chloride Level 108 mmol/L (98-107) Carbon Dioxide Level 24 mmol/L (20-31) Anion Gap 9 (5-15) Blood Urea Nitrogen 6 mg/dL (9-23) Creatinine 0.54 mg/dL (0.550-1.02) Glomerular Filtration Rate Calc 113 mL/min (>90) BUN/Creatinine Ratio 11.1 (10.0-20.0) Serum Glucose 128 mg/dL (74-106) Calcium Level 8.4 mg/dL (8.7-10.4) Magnesium Level 2.0 mg/dL (1.6-2.6) Urine Color Yellow (Yellow) Urine Clarity Clear (Clear) Urine pH 6.0 (5.0-9.0) Urine Specific [place] 1.028 (1.001-1.035) Urine Protein Trace (Negative) Urine Ketones Negative (Negative) Urine Blood 2+ /uL (Negative) Urine Nitrite Negative (Negative) Urine Bilirubin Negative (Negative) Urine Urobilinogen 2 mg/dL (Negative) Urine Leukocyte Esterase Negative /uL (Negative) Urine RBC 2 /hpf (0 - 4) Urine Microscopic WBC 1 /HPF (0-5) Urine Squamous Epithelial Cells Few /hpf (<5) Urine Bacteria Few /hpf (None Seen) Urine Hyaline Casts Few /lpf (0 - 2) Urine Mucus Few (None Seen) Urine Yeast (Budding) Occasional /hpf (None Urine Glucose 2+ mg/dL (Normal) Urine Opiates Screen Neg (NEGATIVE) Urine Fentanyl Screen Neg (NEGATIVE) Urine Barbiturates Screen Neg (NEGATIVE) Urine Phencyclidine Screen Neg (NEGATIVE) Urine Amphetamines Screen Neg (NEGATIVE) Urine Benzodiazepines Screen Neg (NEGATIVE) Urine Cocaine Screen Neg (NEGATIVE) Urine Cannabinoids Screen Neg (NEGATIVE) Free Thyroxine (T4) Calculated 1.00 ng/dL (0.89-1.76) Free Triiodothyronine (T3) pg/mL 3.33 pg/mL (2.3-4.2) Influenza Type A Antigen Negative (Negative) Influenza Type B Antigen Negative (Negative) SARS-CoV-2 Antigen (Rapid) Negative (NEGATIVE) Test 11/05/24 08:59 11/05/24 06:00 Troponin I High Sensitivity < 3 ng/L (</=34) Prothrombin Time 10.7 sec (9.3-11.8) Prothrombin Time INR 1.01 (0.9-1.15) Activated Partial Thromboplast Time 40.2 SEC (24.5-34.5) D-Dimer, Quantitative 0.48 mg/L FEU (0.0-0.49) Hemoglobin A1c 5.4 % A1C (<5.7) Lactic Acid Level 0.9 mmol/L (0.4-2.0) B-Type Natriuretic Peptide 12.56 pg/mL (0-100) Triglycerides Level 92 mg/dL (< 150) Cholesterol Level 128 mg/dL (< 200) LDL Cholesterol 73 mg/dL (< 100) HDL Cholesterol 49 mg/dL (40-59) Thyroid Stimulating Hormone (TSH) 0.39 uIU/mL (0.55-4.78) Plasma/Serum Blood Alcohol < 3.0 mg/dL (<10) Other Laboratory Tests 11/06/24 05:47 Brief Hx & Hospital Course: 48-year-old female vent [facility] with chest pain and transmitted to [facility] with a possible diagnosis of pulmonary embolism. CT chest angiogram done in [facility] ruled out pulmonary embolism and also DVT was also ruled out. Troponin negative x3 seen by meter and service line inspector Dr. Wilson echocardiogram 60 percent ejection fraction felt to be noncardiac chest pain. D-dimer is normal history of hypertension fibromyalgia urine drug screen is negative Britney test negative flu test is negative patient feels better without any chest pain stable vital signs cleared for discharge by Cardiology discharged home on Levaquin for possible pneumonia and tramadol. Consults/Reason for consult Cardiology consult Dr. Petersen Operations or Procedures Echocardiogram Condition at Discharge: Fair Final Diagnosis/Problems List Acute chest pain troponin negative x3: Cardiology consult for Dr. Petersen appreciated felt to be noncardiac chest pain, echocardiogram 60 percent ejection fraction, no further cardiac workup per Cardiology D-dimer normal DVT ruled out PE ruled out Possible community-acquired pneumonia: Rocephin Hypertension Fibromyalgia Moderate obesity Urine drug screen neg Britney test negative Rapid flu test negative Discharge Disposition: Home Discharge Instruct/Medications Diet: Regular Activity: Light activity Follow Up/Referral: Follow up with your primary doc Medications: Levaquin Tramadol Transmitted to the pharmacy 35 (Time Taken for discharge summary 35 minutes) Discharge Statement: "Patient was advised to return to the ER or call 911 if any headaches, dizziness, shortness of breath, chest pain, abdominal pain, bleeding, fevers, or worsening of medical condition. Patient was counseled about treatment plan, medications, possible side effects, patientverbalized understanding. All questions were answered to the best of my ability. This discharge took greater then 30 minutes in planning, reviewing documentation, counseling the patient, and discussing with other team members." ASSESSMENT ASSESSMENT Hospital Course Improved Assessment Acute chest pain troponin negative x3: Cardiology consult for Dr. Petersen appreciated felt to be noncardiac chest pain, echocardiogram 60 percent ejection fraction, no further cardiac workup per Cardiology D-dimer normal DVT ruled out PE ruled out Possible community-acquired pneumonia: Rocephin Hypertension Fibromyalgia Moderate obesity Urine drug screen neg Britney test negative Rapid flu test negative Date of Service: Nov 06, 2024 Billing Provider: VIOLETA DUNN MD Common Visit Codes: 11380-QTD/OBS DISCH DAY >30min VIOLETA DUNN MD Nov 06, 2024 09:52
--- NOTE | 2024-11-06 14:36 | DVH ---
Exam: CT CT AB PEL WO CON-NO ORAL OR IV History: ABD Pain Comparison Study: 11/05/2024 TECHNIQUE: Multidetector CT of the abdomen was performed from lung bases to pubic symphysis. Imaging was performed without IV contrast. Axial, coronal and sagittal multiplanar reformats were obtained fr om the axial data set by the technologist. Radiation Dose Information: CT Dose: CTDI volume is 18.81 mGy. Dose-length product is 1074.48 mGy*cm FINDINGS: Evaluation of solid organs is limited due to lack of intravenous contrast use. Findings: Lung Bases: No acute or significant lung base finding. Normal heart size. No pleural or pericardial effusion. Liver: The liver is normal in size. No focal lesions. Gallbladder and Biliary Tree: Gallbladder has been surgically removed. Spleen: Unremarkable Pancreas: The pancreas is grossly normal in appearance. Adrenal Glands: Unremarkable Kidneys: 2-3 mm nonobstructing calculus lower pole right kidney. 5-6 mm nonobstructing calculus lower pole left kidney Bladder: 7-8 mm calculus in the bladder on the left. Bowel: The stomach is grossly normal in appearance. Small bowel and colon are normal in caliber and d istribution. The appendix is not visualized; however, no secondary findings of acute appendicitis id entified. Ascites: Absent Lymphadenopathy: No mesenteric, retroperitoneal or periportal lymphadenopathy. Abdominal Wall and Mesentery: Unremarkable. Vasculature: The visualized abdominal aorta is normal in size and caliber. Evaluation of abdominal a nd pelvic vessels is limited due to lack of intravenous contrast. Pelvic Organs: Unremarkable Musculoskeletal: No aggressive focal bony lesions, acute fractures or dislocation. Soft tissues: Unremarkable IMPRESSION: 1. Bilateral nonobstructing calculi in the right and left kidney. 2. 7-8 mm calculus in the bladder on the left. Radiation optimization: All CT scans at this facility use at least one of these dose optimization te chniques: automated exposure control mA and/or kV adjustment per patient size (includes targeted exa ms where dose is matched to clinical indication) or iterative reconstruction.
--- NOTE | 2024-11-06 15:27 | DVHINCON2 ---
Date of service: Nov 06, 2024 Referring Physician Yoselin Dunn Reason for Consultation Epigastric abdominal pain History of Present Illness Patient is a 48-year-old female with a past medical history significant for hypertension, history of fibromyalgia with a recent upper respiratory infection, was admitted to [facility] with chest pain found to have a pulmonary embolism however upon transfer to this facility no pulmonary embolism was found. Patient had cardiac workup for chest pain. She was brought to be discharged today when she began experiencing severe epigastric abdominal pain. She denies prior history of severe epigastric abdominal pain or history of EGD. She denies any significant history of GERD. She states that her symptoms have completely resolved. When asked if she wants to go home she said yes. In terms of exacerbating factors patient states that the pain may have come on after she took a Mckenney medication. Past Medical History As above Past Surgical History 1.Cholecystectomy 2. Hysterectomy 3. Tubal ligation Family History: FH: cancer G8 FATHER Social History No significant alcohol tobacco or recreational drug use Allergies: Coded Allergies: NO KNOWN ALLERGIES (Unverified , 11/05/24) Home Meds Active Scripts Tramadol HCl (Tramadol HCl) 50 Mg Tab, 50 MG PO QID PRN, #30 TAB Prov:VIOLETA DUNN MD 11/06/24 Levofloxacin Hemihydrate (LEVAQUIN 500 MG) 500 Mg Tab, 1 TAB PO DAILY, #7 TAB Prov:VIOLETA DUNN MD 11/06/24 Current Medications Current Medications Medications (Trade) Dose Ordered Sig/Alex Route PRN Reason Start Time Stop Time Status Last Admin Atorvastatin Calcium (Lipitor) 40 mg HS PO 11/05/24 22:00 11/05/24 22:18 Ceftriaxone Sodium 50 ml @ 100 mls/hr DAILY@09 IV 11/06/24 09:00 11/06/24 09:49 Acetylcysteine (Mucomyst Po Soln (For [place])) 1,200 mg BID PO 11/05/24 22:00 11/07/24 21:59 11/06/24 10:18 Acetaminophen/ Hydrocodone Bitart (Mckenney 5/325MG Tab) 1 tab Q6HPRN PRN PO MODERATE PAIN (4-6 PAIN SCALE) 11/05/24 20:30 11/06/24 05:10 Review of Systems Review of systems as per HPI Vital Signs Vital Signs Date Time Temp Pulse Resp B/P (MAP) Pulse Ox O2 Delivery O2 Flow Rate FiO2 11/06/24 13:00 98.1 66 20 137/72 (93) 96 98.1 11/06/24 08:00 Room Air* 0 21 Physical Exam General: Alert and oriented x4 no distress HEENT: NC/AT EOMI PERRLA O/P clear Heart: Regular rate and rhythm Abdomen: Soft nontender nondistended Extremity: No clubbing cyanosis or edema Neuro: Cranial nerves 2-12 grossly intact moves all four extremities Labs/Diagnostic Data Labs Test 11/06/24 05:47 11/05/24 21:33 11/05/24 18:35 11/05/24 16:56 Range/Units White Blood Count 4.4 # 4.4-10.8 10^3/uL Red Blood Count 4.22 4.0-5.20 10^6/uL Hemoglobin 13.6 12.2-16.2 g/dL Hematocrit 38.1 36.0-46.0 % Mean Corpuscular Volume 90.4 80.0-100.0 fL Mean Corpuscular Hemoglobin 32.2 H 28.0-32.0 pg Mean Corpuscular Hemoglobin Concent 35.6 32.0-36.0 g/dL Red Cell Distribution Width 13.4 11.8-14.3 % Platelet Count 271 140-450 10^3/uL Mean Platelet Volume 6.8 L 6.9-10.8 fL Neutrophils (%) (Auto) 41.3 37.0-80.0 % Lymphocytes (%) (Auto) 36.8 10.0-50.0 % Monocytes (%) (Auto) 15.3 H 0.0-12.0 % Eosinophils (%) (Auto) 5.7 0.0-7.0 % Basophils (%) (Auto) 0.9 0.0-2.0 % Neutrophils # (Auto) 1.8 1.6-8.6 10 ^3/uL Lymphocytes # (Auto) 1.6 0.4-5.4 10 ^3/uL Monocytes # (Auto) 0.7 0-1.3 10 ^3/uL Eosinophils # (Auto) 0.3 0-0.8 10 ^3/uL Basophils # (Auto) 0 0-0.2 10 ^3/uL Nucleated Red Blood Cells 0.0 % Sodium Level 141 136-145 mmol/L Potassium Level 3.2 L 3.5-5.1 mmol/L Chloride Level 108 H 98-107 mmol/L Carbon Dioxide Level 24 20-31 mmol/L Anion Gap 9 5-15 Blood Urea Nitrogen 6 L 9-23 mg/dL Creatinine 0.54 L 0.550-1.02 mg/dL Glomerular Filtration Rate Calc 113 >90 mL/min BUN/Creatinine Ratio 11.1 10.0-20.0 Serum Glucose 128 H 74-106 mg/dL Calcium Level 8.4 L 8.7-10.4 mg/dL Magnesium Level 2.0 1.6-2.6 mg/dL Lipase 35 12-53 U/L Urine Color Yellow Yellow Urine Clarity Clear Clear Urine pH 6.0 5.0-9.0 Urine Specific [place] 1.028 1.001-1.035 Urine Protein Trace H Negative Urine Ketones Negative Negative Urine Blood 2+ H Negative /uL Urine Nitrite Negative Negative Urine Bilirubin Negative Negative Urine Urobilinogen 2 H Negative mg/dL Urine Leukocyte Esterase Negative Negative /uL Urine RBC 2 0 - 4 /hpf Urine Microscopic WBC 1 0-5 /HPF Urine Squamous Epithelial Cells Few <5 /hpf Urine Bacteria Few H None Seen /hpf Urine Hyaline Casts Few 0 - 2 /lpf Urine Mucus Few None Seen Urine Yeast (Budding) Occasional None Seen /hpf Urine Glucose 2+ H Normal mg/dL Urine Opiates Screen Neg NEGATIVE Urine Fentanyl Screen Neg NEGATIVE Urine Barbiturates Screen Neg NEGATIVE Urine Phencyclidine Screen Neg NEGATIVE Urine Amphetamines Screen Neg NEGATIVE Urine Benzodiazepines Screen Neg NEGATIVE Urine Cocaine Screen Neg NEGATIVE Urine Cannabinoids Screen Neg NEGATIVE Free Thyroxine (T4) Calculated 1.00 0.89-1.76 ng/dL Free Triiodothyronine (T3) pg/mL 3.33 2.3-4.2 pg/mL Influenza Type A Antigen Negative Negative Influenza Type B Antigen Negative Negative SARS-CoV-2 Antigen (Rapid) Negative NEGATIVE Test 11/05/24 08:59 11/05/24 06:00 Range/Units Troponin I High Sensitivity < 3 L </=34 ng/L Prothrombin Time 10.7 9.3-11.8 sec Prothrombin Time INR 1.01 0.9-1.15 Activated Partial Thromboplast Time 40.2 H 24.5-34.5 SEC D-Dimer, Quantitative 0.48 0.0-0.49 mg/L FEU Hemoglobin A1c 5.4 <5.7 % A1C Lactic Acid Level 0.9 0.4-2.0 mmol/L B-Type Natriuretic Peptide 12.56 0-100 pg/mL Triglycerides Level 92 < 150 mg/dL Cholesterol Level 128 < 200 mg/dL LDL Cholesterol 73 < 100 mg/dL HDL Cholesterol 49 40-59 mg/dL Thyroid Stimulating Hormone (TSH) 0.39 L 0.55-4.78 uIU/mL Plasma/Serum Blood Alcohol < 3.0 <10 mg/dL Assessment 1. Abdominal pain 2. Bilateral kidney stones nonobstructing Problems(with codes): (1) Acute chest pain Plan/Recommendation 1. Patient feels better and wants to go home, she may be discharged with outpatient follow up 2. Consider outpatient EGD 3. Anti-reflux precautions 4. Return. Worsening symptoms Plan discussed with: Patient, Spouse ANDREA HARPER MD Nov 06, 2024 15:27
== END 2024-11-06 18:40 | disposition home or self-care (01) | DRG 195 ==
LOC: ER 05:23 → EDBD 05:23 → OVERFLOW 06:43 → TELE-EAST 17:21
PROVIDERS: ADMIT Family Medicine; ATTEND Family Medicine
DX: J18.9 Pneumonia, unspecified organism (principal); E87.6 Hypokalemia; I10 Essential (primary) hypertension; E66.9 Obesity, unspecified; M79.7 Fibromyalgia; Z20.822 Contact with and (suspected) exposure to COVID-19; F10.10 Alcohol abuse, uncomplicated; N20.0 Calculus of kidney; Z98.51 Tubal ligation status; Z90.711 Acquired absence of uterus with remaining cervical stump; Z90.49 Acquired absence of other specified parts of digestive tract; Z86.711 Personal history of pulmonary embolism; Z68.31 Body mass index [BMI] 31.0-31.9, adult
CPT/HCPCS: 36415; 71045; 71275; 74176; 80048; 80061; 80307; 80320; 81001; 83036; 83605; 83690; 83735; 83880; 84439; 84443; 84481; 84484; 85025; 85379; 85610; 85730; 87426; 87804; 93005; 93306; 93970; 96365; 99291; G0378